=== PATIENT | male | born 1960 | race Caucasian/White ===

== ENCOUNTER 2021-03-17 14:09 | Emergency (ER) | payer OTHER | END 2021-03-17 17:20 | disposition other institution (70) | LOC: FER 14:09 | DX: S62.616B Displaced fracture of proximal phalanx of right little finger, initial encounter for open fracture (principal); W23.0XXA Caught, crushed, jammed, or pinched between moving objects, initial encounter; Y92.009 Unspecified place in unspecified non-institutional (private) residence as the place of occurrence of the external cause | CPT/HCPCS: 73130 ==